=== PATIENT | female | born 1990 | race American Indian/Alaskan Native ===

== ENCOUNTER 2018-03-11 19:59 | Emergency (ER) | payer MEDICAID ==
[2018-03-11 20:25] VITALS: BP 140/90; PULSE 86; RESP 18; TEMP 98.6; O2SAT 100
--- NOTE | 2018-03-11 21:38 | C.PDOC ---
Time Seen by Provider: 03/11/18 20:36 Chief Complaint (Nursing): Allergic Reaction Past Medical History Vital Signs: Last Vital Signs Temp 98.6 F 03/11/18 20:22 Pulse 86 03/11/18 20:22 Resp 18 03/11/18 20:22 BP 140/90 03/11/18 20:22 Pulse Ox 100 03/11/18 20:22 - Social History Hx Alcohol Use: No Hx Substance Use: No - Immunization History Hx Tetanus Toxoid Vaccination: No Hx Influenza Vaccination: No Hx Pneumococcal Vaccination: No ED Course And Treatment O2 Sat by Pulse Oximetry: 100 Disposition - Disposition
--- NOTE | 2018-03-11 21:42 | C.PDOC ---
History Of Present Illness 27 y/o female presents to the ER for evaluation of possible allergic reaction since yesterday. She states she was bit by an insect yesterday, and developed swelling to the right eye afterward. Today patient noticed swelling to the left eye as well. Patient took 1 tab of Benadryl at 7pm this evening without improvement. She denies any SOB, chest pain, travel, fever, or throat swelling/ pain. Time Seen by Provider: 03/11/18 20:36 Chief Complaint (Nursing): Allergic Reaction History Per: Patient History/Exam Limitations: no limitations Onset/Duration Of Symptoms: Days Current Symptoms Are (Timing): Still Present Past Medical History Reviewed: Historical Data, Nursing Documentation, Vital Signs Vital Signs: Last Vital Signs Temp 98.6 F 03/11/18 20:22 Pulse 86 03/11/18 20:22 Resp 18 03/11/18 20:22 BP 140/90 03/11/18 20:22 Pulse Ox 100 03/11/18 21:47 - Medical History PMH: No Chronic Diseases Surgical History: No Surg Hx Family History: States: No Known Family Hx - Social History Hx Tobacco Use: No Hx Alcohol Use: No Hx Substance Use: No - Immunization History Hx Tetanus Toxoid Vaccination: No Hx Influenza Vaccination: No Hx Pneumococcal Vaccination: No Review Of Systems Except As Marked, All Systems Reviewed And Found Negative. Constitutional: Negative for: Fever Eyes: Positive for: Eyelid Inflammation. Negative for: Vision Change ENT: Negative for: Throat Pain, Throat Swelling Cardiovascular: Negative for: Chest Pain Respiratory: Negative for: Shortness of Breath, Wheezing Physical Exam - Physical Exam Appears: Non-toxic, No Acute Distress Skin: Normal Color, Warm, No Rash Head: Atraumatic, Normacephalic Eye(s): bilateral: PERRL, EOMI, Eyelid Inflammation (Minimal swelling to bilateral eyelids) Nose: Normal Oral Mucosa: Moist Throat: Normal, No Erythema, No Other (swelling) Neck: Normal ROM, Supple Chest: Symmetrical Cardiovascular: Rhythm Regular, No Murmur Respiratory: Normal Breath Sounds, No Accessory Muscle Use, No Rhonchi, No Wheezing Extremity: Bilateral: Atraumatic, Normal Color And Temperature, Normal ROM Pulses: Left Radial: Normal, Right Radial: Normal Neurological/Psych: Oriented x3, Normal Speech ED Course And Treatment O2 Sat by Pulse Oximetry: 100 (RA) Pulse Ox Interpretation: Normal Medical Decision Making Medical Decision Making: Plan: --Prednisone 40 mg PO The patient took the full dose of benadryl at home [employer]. On re-exam, the patient' s airway remains patent. Lungs are CTA, heart is RRR, abdomen is soft, non- tender and tolerating PO well. Pt is ambulatory in the ED with steady gait. Follow up with the medical doctor/clinic within 1-2 days without fail. Return if worsened. Disposition - Disposition Referrals: [facility] [Outside] Disposition: HOME/ ROUTINE Disposition Time: 21:00 Condition: GOOD Additional Instructions: Follow up with the medical doctor/clinic within 1-2 days without fail. Return if worsened. Prescriptions: DiphenhydrAMINE [Benadryl] 25 mg PO QID #28 cap predniSONE [Prednisone] 20 mg PO BID #10 tab Instructions: Hives Forms: [employer] (Romanian) - Clinical Impression Clinical Impression: Allergic urticaria, Allergic reaction - PA / ACTOR UNDERSTUDY / Resident Statement MD/DO has reviewed & agrees with the documentation as recorded. - Scribe Statement The provider has reviewed the documentation as recorded by the Scribe (Margie Lopez) All medical record entries made by the Scribe were at my direction and personally dictated by me. I have reviewed the chart and agree that the record accurately reflects my personal performance of the history, physical exam, medical decision making, and the department course for this patient. I have also personally directed, reviewed, and agree with the discharge instructions and disposition.
== END 2018-03-11 21:49 | disposition home or self-care (01) ==
LOC: C.ER 19:59
DX: L50.0 Allergic urticaria (principal)

== ENCOUNTER 2018-06-22 01:18 | Emergency (ER) | payer MEDICAID ==
[2018-06-22 01:42] VITALS: BP 137/86; PULSE 77; RESP 16; TEMP 97.9; O2SAT 99
--- NOTE | 2018-06-22 02:04 | C.PDOC ---
History Of Present Illness 28 year old female presents to the ED c/o right eye discomfort. Patient reports someone flipped their hair into her eye, patient not sure if contact lens fell or still present. Patient does not feel the contact lens. Patient denies fever, chills, headache, trauma, fall, visual changes, eye discharge. Time Seen by Provider: 06/22/18 02:04 Chief Complaint (Nursing): Eye Problem History Per: Patient History/Exam Limitations: no limitations Onset/Duration Of Symptoms: Hrs Current Symptoms Are (Timing): Still Present Injury To Eye?: No Severity: None Quality: "Pain" Wears Contact Lens?: No Associated Symptoms: FB Sensation Recent travel outside of the [place]: No Additional History Per: Patient Past Medical History Reviewed: Historical Data, Nursing Documentation, Vital Signs Vital Signs: Last Vital Signs Temp 97.9 F 06/22/18 01:42 Pulse 77 06/22/18 01:42 Resp 16 06/22/18 01:42 BP 137/86 06/22/18 01:42 Pulse Ox 99 06/22/18 01:42 - Medical History PMH: No Chronic Diseases Surgical History: No Surg Hx Family History: States: Unknown Family Hx - Social History Hx Tobacco Use: No Hx Alcohol Use: No Hx Substance Use: No - Immunization History Hx Tetanus Toxoid Vaccination: No Hx Influenza Vaccination: No Hx Pneumococcal Vaccination: No Review Of Systems Constitutional: Negative for: Fever, Chills Eyes: Positive for: Pain. Negative for: Vision Change ENT: Negative for: Nose Discharge, Nose Congestion Respiratory: Negative for: Cough, Shortness of Breath Gastrointestinal: Negative for: Nausea, Vomiting Neurological: Negative for: Headache Physical Exam - Physical Exam Appears: Non-toxic, No Acute Distress Skin: Warm, Dry Head: Normacephalic Eye(s): bilateral: Normal Inspection, right: Other (inverted eyelid, no evidence of contact lens present) Ear(s): Bilateral: Normal Oral Mucosa: Moist Throat: No Erythema, No Exudate Neck: Supple Extremity: Bilateral: Atraumatic, Normal Color And Temperature, Normal ROM Neurological/Psych: Oriented x3, Normal Speech, Normal Cognition Gait: Steady ED Course And Treatment O2 Sat by Pulse Oximetry: 99 (ON RA) Pulse Ox Interpretation: Normal Disposition Counseled Patient/Family Regarding: Studies Performed, Diagnosis, Need For Followup - Disposition Disposition: HOME/ ROUTINE Disposition Time: 02:04 Condition: FAIR Additional Instructions: Please follow up with your product technician Instructions: Foreign Body in Eye (DC) Forms: [employer] (Hebrew) - Clinical Impression Clinical Impression: Contusion of eye - Scribe Statement The provider has reviewed the documentation as recorded by the Scribe Dejuan Mccain All medical record entries made by the Scribe were at my direction and personally dictated by me. I have reviewed the chart and agree that the record accurately reflects my personal performance of the history, physical exam, medical decision making, and the department course for this patient. I have also personally directed, reviewed, and agree with the discharge instructions and disposition.
== END 2018-06-22 02:32 | disposition home or self-care (01) ==
LOC: C.ER 01:18
DX: S05.11XA Contusion of eyeball and orbital tissues, right eye, initial encounter (principal); X58.XXXA Exposure to other specified factors, initial encounter

== ENCOUNTER 2018-10-18 17:02 | Emergency (ER) | payer MEDICAID ==
[2018-10-18 17:29] VITALS: BP 147/96; PULSE 72; RESP 18; TEMP 98.7; O2SAT 100
--- NOTE | 2018-10-18 19:07 | C.PDOC ---
History Of Present Illness Patient is a 28 year old female who presents to the ED c/o abscess to back of neck that patient noticed 2 days ago. Patient states that abscess is tender to touch. She denies any fever or drainage. Time Seen by Provider: 10/18/18 17:15 Chief Complaint (Nursing): Abnormal Skin Integrity History Per: Patient History/Exam Limitations: no limitations Onset/Duration Of Symptoms: Days (2) Current Symptoms Are (Timing): Still Present Location Of Injury: Posterior: Neck (abscess) Quality Of Symptoms: Painful. denies: Draining Recent travel outside of the [place]: No Additional History Per: Patient Past Medical History Reviewed: Historical Data, Nursing Documentation, Vital Signs Vital Signs: Last Vital Signs Temp 98.7 F 10/18/18 17:28 Pulse 72 10/18/18 17:28 Resp 18 10/18/18 17:28 BP 147/96 H 10/18/18 17:28 Pulse Ox 100 10/18/18 17:28 - Medical History PMH: No Chronic Diseases Surgical History: No Surg Hx Family History: States: Unknown Family Hx - Social History Hx Tobacco Use: No Hx Alcohol Use: No Hx Substance Use: No - Immunization History Hx Tetanus Toxoid Vaccination: No Hx Influenza Vaccination: No Hx Pneumococcal Vaccination: No Review Of Systems Except As Marked, All Systems Reviewed And Found Negative. Constitutional: Negative for: Fever Skin: Positive for: Other (tender to touch abscess at back of neck with no drainage ) Physical Exam - Physical Exam Appears: Non-toxic, No Acute Distress Skin: Normal Color, Warm, Dry, Other (left posterior neck shows indurated half centeimeter circumferential mass tender to touch) Head: Atraumatic, Normacephalic Oral Mucosa: Moist Chest: Symmetrical, No Deformity Cardiovascular: Rhythm Regular Respiratory: Normal Breath Sounds Gastrointestinal/Abdominal: Normal Exam, Soft, No Tenderness Extremity: Normal ROM Neurological/Psych: Oriented x3 ED Course And Treatment O2 Sat by Pulse Oximetry: 100 (on RA) Pulse Ox Interpretation: Normal Medical Decision Making Medical Decision Making: Progress note: antibiotic prescription given. patient will follow up with PMD Disposition - Disposition Referrals: Abraham Stewart MD [Medical Doctor] - Disposition: HOME/ ROUTINE Disposition Time: 17:30 Condition: GOOD Additional Instructions: JAYY BENÍTEZ, thank you for letting us take care of you today. The emergency medical care you received today was directed at your acute symptoms. If you were prescribed any medication, please fill it and take as directed. It may take several days for your symptoms to resolve. Return to the Emergency Department if your symptoms worsen, do not improve, or if you have any other problems. Please contact your doctor or call one of the physicians/clinics you have been referred to that are listed on the Patient Visit Information form that is included in your discharge packet. Bring any paperwork you were given at discharge with you along with any medications you are taking to your follow up visit. Our treatment cannot replace ongoing medical care by a primary care provider outside of the emergency department. Thank you for allowing the [facility] team to be part of your care today. Follow up with your primary care doctor in 2-3 days for re-evaluation and further management. Prescriptions: Cephalexin [Keflex] 500 mg PO TID #15 capsule Instructions: Skin Abscess Forms: [id number] (Mexican) - Clinical Impression Clinical Impression: Skin abscess - Scribe Statement The provider has reviewed the documentation as recorded by the Juni Love All medical record entries made by the Vielkaibkrzysztof were at my direction and personally dictated by me. I have reviewed the chart and agree that the record accurately reflects my personal performance of the history, physical exam, medical decision making, and the department course for this patient. I have also personally directed, reviewed, and agree with the discharge instructions and disposition.
== END 2018-10-18 17:41 | disposition home or self-care (01) ==
LOC: C.ER 17:02
DX: L02.11 Cutaneous abscess of neck (principal)